=== PATIENT | male | born 1995 | race Caucasian/White ===

== ENCOUNTER 2017-01-07 17:34 | Emergency (ER) | payer BC, OTHER ==
[~2017-01-07] VITALS: Ht 182.9 cm; Wt 65.8 kg
[2017-01-07] MEDS ORDERED: ADACEL/BOOSTRIX VACCINE (DIPHTH/PERTUSS/ACELL/TETANUS)0.5ML SYR (90715) IM ONE (20:00)
[2017-01-07] MEDS ORDERED: LIDOCAINE 1% MDV 20ML VIAL SC ONE (20:00)
[2017-01-07] MEDS ORDERED: POLYSPORIN TOPICAL OINTMENT 15GM As Ordered ONE (20:35)
[2017-01-07] MEDS ORDERED: NEOSPORIN OINT 0.9 GM PKT (FLOOR STOCK) As Ordered ONE (20:38)
[2017-01-07] MEDS ORDERED: POLYSPORIN TOPICAL OINTMENT 15GM TOP ONE (20:45)
[2017-01-07 21:00] VITALS: BP 141/69
== END 2017-01-07 21:06 | disposition home or self-care (01) ==
LOC: M ED 18:44
DX: S61.412A Laceration without foreign body of left hand, initial encounter (principal); W26.0XXA Contact with knife, initial encounter; Y92.89 Other specified places as the place of occurrence of the external cause; Y93.89 Activity, other specified; Y99.0 Civilian activity done for income or pay

== ENCOUNTER 2018-02-23 17:40 | Emergency (ER) | payer OTHER ==
[2018-02-23] MEDS: IBUPROFEN 600 MG TAB PO (18:43)
== END 2018-02-23 20:08 | disposition home or self-care (01) ==
LOC: M ED 17:40
DX: S80.01XA Contusion of right knee, initial encounter (principal); S80.211A Abrasion, right knee, initial encounter; V03.10XA Pedestrian on foot injured in collision with car, pick-up truck or van in traffic accident, initial encounter; Y92.410 Unspecified street and highway as the place of occurrence of the external cause
CPT/HCPCS: 73564

== ENCOUNTER → 2020-10-24 | Outpatient (CLI) | payer SELFPAY ==
[~2020-10-24] MED LIST: IBUP-1022 PO
== END ==
LOC: M LABSMTC 13:44
PROVIDERS: ATTEND Pediatrics
DX: Z20.822 Contact with and (suspected) exposure to COVID-19 (principal)

== ENCOUNTER 2022-07-31 19:07 | Emergency (ER) | payer OTHER, SELFPAY ==
[~2022-07-31] VITALS: Ht 177.8 cm; Wt 75.0 kg
[2022-07-31 19:07] VITALS: BP 162/75
== END 2022-07-31 22:47 | disposition left against medical advice (07) ==
LOC: M ED 19:07
DX: Z53.21 Procedure and treatment not carried out due to patient leaving prior to being seen by health care provider (principal)